=== PATIENT | male | born 1970 | race Caucasian/White ===

== ENCOUNTER 2018-12-09 18:57 | Observation (INO) | payer OTHER ==
[2018-12-09 19:54] LABS: #Basophils 0.1 thou/uL (0.0-0.2); #Eosinphils 0.3 thou/uL (0.0-0.7); #Lymphocytes 3.5 thou/uL (1.20-3.40); #Monocytes 0.9 thou/uL (0.11-0.59); #Neutrophils 4.5 thou/uL (1.40-6.50); %Basophils 1.4 % (0.0-1.0); %Eosinophils 2.9 % (0.0-10.0); %Lymphocytes 37.7 % (21.0-51.0); %Monocytes 9.7 % (0.0-10.0); %Neutrophils 48.3 % (42.0-75.0); Hemoglobin 15.9 g/dL (14.0-18.0); Mean Corpuscular HGB CONC 33.9 g/dL (32.0-36.0); Mean Corpuscular Hemoglobin 30.8 pg (27.0-31.0); Mean Corpuscular Volume 91.1 fL (78.0-98.0); Platelet Count 296 thou/uL (130-400); RBC Distribution Width 11.7 % (11.5-14.5); Red Blood Cell (RBC) Count 5.16 mill/uL (4.70-6.10); White Blood Cell (WBC) Count 9.3 thou/uL (4.8-10.8)
[2018-12-09] MEDS ORDERED: Vancomycin HCl 1.5 GM in Sodium Chloride 0.9% 250 ML 300 ML IVPB SCH (20:00)
[2018-12-09 20:15] LABS: ALT (SGPT) 98 U/L (8-55); AST (SGOT) 66 U/L (5-34); Albumin 4.5 g/dL (3.5-5.0); Alkaline Phosphatase 73 U/L (40-150); Anion Gap 14 mmol/L (10-20); BUN (Urea Nitrogen) 16 mg/dL (8.9-20.6); Bilirubin, Total 0.9 mg/dL (0.2-1.2); Calc. Creatinine Clearance 0 mL/min (70-130); Carbon Dioxide 29 mmol/L (22-29); Chloride 101 mmol/L (98-107); Estimated GFR-MDRD 67; Globulin 3.9 g/dL (2.4-3.5); Glucose 91 mg/dL (70-105); Potassium 3.9 mmol/L (3.5-5.1); Protein, Total 8.4 g/dL (6.0-8.3); Sodium 140 mmol/L (136-145)
[2018-12-09] MEDS ORDERED: HYDROcodone/Acetaminophen 5/325 mg Tablet PO PRN ×2 (21:50)
[2018-12-09] MEDS ORDERED: Acetaminophen 325 MG TAB PO PRN (21:50)
[2018-12-09] MEDS ORDERED: Senokot S 8.6-50 MG TAB PO PRN (21:50)
[2018-12-09 22:06] LABS: Lactic Acid 1.7 mmol/L (0.5-2.2)
[2018-12-09 23:34] VITALS: BMI 32.8
[2018-12-09] MEDS: Lactated Ringer's 1,000 ML IV SCH (23:52)
--- NOTE | 2018-12-10 02:43 | HP ---
PRIMARY CARE PHYSICIAN: Dr. Keith Burrows. CHIEF COMPLAINT: Cellulitis to left forearm. HISTORY OF PRESENT ILLNESS: Mr. Orellana is a 48-year-old male who reported to the emergency room for evaluation of redness and swelling to his left lower arm. He was working in his yard yesterday. He reports he was cleaning out some stagnant water around his yard. Reports that he may have gotten bitten by some mosquitos, was itching last night. He scratched several bites on his arm. Today, he woke up with some erythema streaking, went to the urgent care and received 2 injections of clindamycin and was discharged home. Several hours later, the streaking and redness continued to progress up his arm, so he returned to the Urgent Care where he was told that he needed to seek care at the emergency room. He denied any fevers or chills. Reports that he is otherwise healthy. Denies past medical history. Denies taking any medication. White blood cell count in the emergency room is 9.3. He was given a dose of vancomycin and admitted to the Hospitalist Service for further management. PAST MEDICAL HISTORY: None. PAST SURGICAL HISTORY: None. SOCIAL HISTORY: The patient lives at home with his and family. Denies any alcohol or drug use. He is a nonsmoker. KNOWN ALLERGIES: None. CURRENT MEDICATIONS: None. REVIEW OF SYSTEMS: The patient endorses redness, warmth, and skin lesions to his left lower arm with redness streaking up to his axilla. Denies any chills, fevers, or nausea. All other systems reviewed and are negative unless mentioned in the HPI. PHYSICAL EXAMINATION: VITAL SIGNS: Blood pressure is 125/79, pulse is 64, respirations 16, temperature is 98.5, and pulse ox is 96% on room air. CONSTITUTIONAL: The patient appears nontoxic, he is alert and oriented to person, place, and time. HEENT: Head is atraumatic and normocephalic. Eyes; eyelids are normal to inspection. Pupils are equally round and reactive to light. ENT; mucous membranes are moist. Mouth exam is normal. NECK: Normal range of motion. Trachea is midline. RESPIRATORY: Breath sounds are clear. No signs of respiratory distress. CARDIOVASCULAR: Heart rate is regular rate and rhythm. Heart sounds are normal. ABDOMEN: Nontender. Bowel sounds are heard. BACK: Normal inspection. Normal range of motion. No tenderness. EXTREMITIES: Upper extremity, normal range of motion. Motor strength is normal. Sensation is intact. Radial pulses are equal bilaterally. Lower extremity; normal range of motion. Motor strength is normal. Sensation is intact. Pedal pulses are equal bilaterally. NEUROLOGIC: The patient is oriented to person, place, and time. Speech is normal. SKIN: There is a rash with two 1 x 1 cm marked anterior forearm and posterior forearm with no abscess noted. There is mild induration, progressive streaking of the antecubital region extending towards the left axilla. There is some induration noted in the antecubital space in the left forearm with warmth and erythema noted. Left anterior wrist up to the antecubital space with 1 cm area of streaking up the anterior space of the left upper arm. PERTINENT LABORATORY DATA: Sodium is 140, potassium is 3.9, chloride is 101, carbon dioxide is 29, gap is 14, BUN is 16, creatinine is 1.16, estimated GFR is 67, glucose is 91, and calcium is 10. Bilirubin is 0.9, protein is 8.4, globulin is 3.9, albumin is 4.5. AST is 66, ALT is 98, alkaline phosphatase is 73. White blood cell count is 9.3, hemoglobin is 15.9, hematocrit is 47, and platelet count is 296. ASSESSMENT AND PLAN: 1. Cellulitis, failed outpatient treatment with progressive streaking the left forearm. We will start gentle hydration, lactated Ringer's at 100 mL per hour. We will continue the vancomycin and have asked pharmacy to dose, Tylenol and pain medications have been ordered. Labs will be redrawn. 2. Mild transaminitis. We will trend liver enzymes in the morning. 3. Deep venous thrombosis and gastrointestinal prophylaxis will be started. Case discussed with Dr. Trimble, who agrees to plan. Job ID: [id number]
[2018-12-10 05:11] LABS: #Basophils 0.1 thou/uL (0.0-0.2); #Eosinphils 0.2 thou/uL (0.0-0.7); #Lymphocytes 2.7 thou/uL (1.20-3.40); #Monocytes 0.7 thou/uL (0.11-0.59); #Neutrophils 3.8 thou/uL (1.40-6.50); %Basophils 0.7 % (0.0-1.0); %Eosinophils 3.1 % (0.0-10.0); %Lymphocytes 36.7 % (21.0-51.0); %Monocytes 9.2 % (0.0-10.0); %Neutrophils 50.4 % (42.0-75.0); Hemoglobin 14.4 g/dL (14.0-18.0); Mean Corpuscular HGB CONC 34.7 g/dL (32.0-36.0); Mean Corpuscular Hemoglobin 31.8 pg (27.0-31.0); Mean Corpuscular Volume 91.6 fL (78.0-98.0); Mean Platelet Volume 7.2 fL (7.4-10.4); Platelet Count 257 thou/uL (130-400); RBC Distribution Width 11.7 % (11.5-14.5); Red Blood Cell (RBC) Count 4.52 mill/uL (4.70-6.10); White Blood Cell (WBC) Count 7.5 thou/uL (4.8-10.8)
[2018-12-10 05:35] LABS: ALT (SGPT) 75 U/L (8-55); AST (SGOT) 49 U/L (5-34); Albumin 3.6 g/dL (3.5-5.0); Alkaline Phosphatase 64 U/L (40-150); Anion Gap 11 mmol/L (10-20); BUN (Urea Nitrogen) 18 mg/dL (8.9-20.6); Bilirubin, Total 0.7 mg/dL (0.2-1.2); Calc. Creatinine Clearance 130 mL/min (70-130); Calcium 9.1 mg/dL (7.8-10.44); Carbon Dioxide 27 mmol/L (22-29); Chloride 105 mmol/L (98-107); Estimated GFR-MDRD 73; Globulin 3.1 g/dL (2.4-3.5); Glucose 119 mg/dL (70-105); Potassium 3.6 mmol/L (3.5-5.1); Protein, Total 6.7 g/dL (6.0-8.3); Sodium 139 mmol/L (136-145)
[2018-12-10] MEDS ORDERED: Vancomycin HCl 1.75 GM in Sodium Chloride 0.9% 500 ML IVPB SCH (08:00)
[2018-12-10] MEDS: Lactated Ringer's 1,000 ML IV SCH (08:45)
[2018-12-10] MEDS ORDERED: Famotidine 20 MG TAB PO SCH (09:00)
[2018-12-10] MEDS ORDERED: Enoxaparin Sodium 40 MG/0.4 ML SYRINGE SC SCH (09:00)
[2018-12-10 11:53] VITALS: BP 125/78; TEMP 97.3
--- NOTE | 2018-12-11 05:36 | DIS ---
DATE OF ADMISSION: 12/09/2018 DATE OF DISCHARGE: 12/10/2018 ALLERGIES: NO KNOWN DRUG ALLERGIES. CHIEF COMPLAINT: Insect bite with resulting inflammation and cellulitis to the left forearm. FINAL DIAGNOSIS: Cellulitis and inflammation secondary to insect bite, much improved. PROCEDURE PERFORMED: None. LABORATORY RESULTS: White blood cell count 7.5, hemoglobin 14.4, hematocrit 41.4, MCV 91.6. Sodium 139, potassium 3.6, chloride 105, carbon dioxide 27, anion gap 11, creatinine 1.07, estimated GFR 73, glucose 91, lactic acid 1.7, total bilirubin 0.7. AST and ALT mildly elevated at 49 and 75 respectively, alkaline phosphatase 64. IMAGING RESULTS: None performed. CONSULTATIONS: None. VITAL SIGNS: Blood pressure 110/69, O2 saturation 93% on room air, pulse 69, respirations 16. HOSPITAL COURSE: The patient is a very pleasant 48-year-old male with no past medical history, who presented to the ER for further workup of the redness and swelling to his left forearm. His symptoms began 2 days ago while he was working in his yard. He was cleaning out some stagnant water and reports that he may have gotten bitten at that time. The bites were pruritic. The following day, he woke up with significant erythema surrounding the bites as well as some streaking up to the upper arm. He went to the outpatient Urgent Care and was given IM antibiotics, however, the redness did seem to be increasing, and so he was instructed by the Urgent Care to go to the emergency room for further evaluation. The patient has had no systemic symptoms. He has had no fever or chills. He was given IV vancomycin, admitted for observation. The erythema and swelling are greatly reduced today. He feels well. He continues to complain of no systemic symptoms. PHYSICAL EXAMINATION: GENERAL: This is a well-appearing, mildly obese male, in no acute distress. HEENT: Atraumatic and normocephalic. Eye movement intact. NECK: Supple. No lymphadenopathy. No JVD. No carotid bruits. RESPIRATORY: Regular respiratory rate and pattern. Clear to auscultation bilaterally. No rhonchi or wheezes. CARDIOVASCULAR: S1, S2. Regular rate and rhythm. No appreciable murmurs, rubs, or gallops. GI: Soft, nontender. Normal bowel sounds. PERIPHERAL VASCULAR: No lower extremity pitting edema. Palpable +2 DP pulses bilaterally. MUSCULOSKELETAL: No joint effusion or swelling. NEUROLOGIC: Awake and alert. Cranial nerves 2 through 12 intact. No focal deficit. SKIN: On the patient's left forearm, he does have two insect bites that appear to have clear vesicle at the head of the bite. They are erythematous, the previous line of demarcation of erythema is now greatly reduced along with the edema. CONDITION AT DISCHARGE: Stable. DISCHARGE MEDICATION: Clindamycin 300 mg t.i.d. x10 days. DISCHARGE DISPOSITION: Home. PLAN: Care of this patient has been discussed with Dr. Escalante at length. Likely the patient was bitten by a spider, and reaction could largely be secondary to injected venom. In any case, we will prophylactically continue clindamycin. This has been discussed with the patient at length. The patient did have some elevated transaminases, but these were trending down. He will follow up with his PCP regarding this. All questions answered to the patient's satisfaction. Job ID: [id number]
== END 2018-12-10 13:39 | disposition home or self-care (01) ==
LOC: ERS 18:57 → 2SW 20:45
PROVIDERS: ADMIT Hospitalist; ATTEND Hospitalist
DX: S50.862A Insect bite (nonvenomous) of left forearm, initial encounter (principal); L03.114 Cellulitis of left upper limb
CPT/HCPCS: 36415; 80053; 83605; 85025; 87040; 96361; 96365; G0378; J1650; J3370; J7050